=== PATIENT | male | born 2000 | race Hispanic/Latino ===

== ENCOUNTER 2022-05-04 01:50 | Emergency (ER) | payer SELFPAY ==
[2022-05-04] MEDS ORDERED: Tranexamic Acid 1,000 MG/10 ML VIAL ONE (02:20)
== END 2022-05-04 03:25 | disposition home or self-care (01) ==
LOC: CSHERS 01:50
DX: K91.840 Postprocedural hemorrhage of a digestive system organ or structure following a digestive system procedure (principal)
CPT/HCPCS: 99282